=== PATIENT | female | born 1945 | race Caucasian/White ===

== ENCOUNTER → 2016-07-25 | Outpatient (CLI) | payer OTHER, MEDICARE ==
[~2016-07-25] MED LIST: MECLIZINE HCL12.5 MG PO; NORCO 5-325 TA1 EACH PO; PREVACID15 MG PO; VICODIN 5-5001 EACH PO
== END ==
LOC: ULTRA 07:53 → RAD 07:53
DX: R92.2 Inconclusive mammogram (principal)

== ENCOUNTER → 2019-01-22 | Outpatient (CLI) | payer OTHER, MEDICARE | LOC: RAD 11:08 | DX: Z12.31 Encounter for screening mammogram for malignant neoplasm of breast (principal) ==

== ENCOUNTER → 2020-06-08 | Outpatient (CLI) | payer OTHER, MEDICARE | LOC: BC 10:56 | PROVIDERS: ATTEND Specialist | DX: Z12.31 Encounter for screening mammogram for malignant neoplasm of breast (principal) ==